=== PATIENT | female | born 1985 | race Hispanic/Latino ===

== ENCOUNTER 2016-11-12 10:03 | Emergency (ER) | payer SELFPAY ==
--- NOTE | 2016-11-12 10:36 | ERRECORD ---
[facility] EMERGENCY RECORD HPI FEVER (10:41 JJA) CHIEF COMPLAINT: Patient presents for evaluation of feeling feverish. HISTORIAN: History provided by patient, 31F presents with complaints of 2 days of fever and generalized malaise. Reports cough with yellow sputum, body aches and pains. Denies abdominal pain, headache, neck stiffness, chest pain, or shortness of breath. Denies recent travel, denies IV drug use. LOCATION: Symptoms are generalized. IMMUNIZATION STATUS: Flu vaccine not up to date. TIME COURSE: Gradual onset of symptoms, Symptoms are worsening. ASSOCIATED WITH: Associated with chills, Associated with cough, No associated headache, Associated with myalgias, No associated rash, Associated with upper respiratory infection. EXACERBATED BY: Patient's condition exacerbated by nothing. RELIEVED BY: Patient's condition relieved by over the counter medications. ROS (10:42 [facility]) CONSTITUTIONAL: Historian reports chills, reports fatigue, reports fever, reports malaise. CARDIOVASCULAR: Negative cardiovascular review of systems, Historian denies chest pain, denies palpitations. RESPIRATORY: Historian reports cough, denies shortness of breath, reports sputum. yellow. GI: Negative gastrointestinal review of systems, Historian denies abdominal pain, denies constipation, denies diarrhea, denies nausea, denies vomiting. GENITOURINARY FEMALE: Negative genitourinary review of systems, Historian denies dysuria, denies frequency. SKIN: Negative skin review of systems, Historian denies rash, denies skin changes. NEUROLOGIC: Negative neurologic review of systems, Historian denies headache. HEMO/LYMPHATIC: Normal hematologic/lymphatic system review, Historian denies abnormal blood clotting. PAST MEDICAL HISTORY (10:12 AADK) MEDICAL HISTORY: No past medical history, Flu vaccine not up to date, Tetanus immunization up to date, Date of immunization: < 5 YEARS, Pneumococcal vaccine not up to date. FEMALE SURGICAL HISTORY: Patient has no surgical history. PSYCHIATRIC HISTORY: No previous psychiatric history. SOCIAL HISTORY: Patient drinks socially, every week, Alcohol history notes: BEER, Patient denies drug use, Patient currently uses tobacco, smokes cigarettes, Occasional or some day smoker, Patient has smoked for 15 years, Patient smokes ocassionally, 2 CIGS EVERY OTHER DAY, Lives at home, with family. FAMILY HISTORY: No known family hisotry. &a-1R&a+25V*p+0X*n1354U*c202B*c15G*c2P*p-0X&a-25V&a+1R Name: Cee Ng : 1985 F31 MedRec: [id number] AcctNum: [id number] Prepared: Coby Nov 12, 2016 10:47 by Interface Page 1 of 3 pMD [facility] EMERGENCY RECORD KNOWN ALLERGIES NKDA CURRENT MEDICATIONS (10:07 AADK) None VITAL SIGNS VITAL SIGNS: BP: 156/98, Temp: 98.6 (Oral), Pain: 4 (Constant), Time: 11/12/2016 10:08. (10:08 AADK) Pulse: 98, Resp: 20 (Non-Labored), O2 sat: 98 on Room Air, Time: 11/12/2016 10:09. (10:09 AADK) PHYSICAL EXAM (10:42 [facility]) CONSTITUTIONAL: Vital signs reviewed, Patient afebrile, Pulse normal, Blood pressure normal, Respiratory rate normal, Patient appears non toxic, Patient appears pain free, Patient alert and oriented to person, place and time. NECK: Neck exam normal, Neck exam included findings of normal range of motion, Trachea midline, no meningeal signs, no cervical adenopathy, no tenderness. RESPIRATORY CHEST: Respiratory and chest exam normal, Respiratory exam included findings of no respiratory distress, Breath sounds clear. CARDIOVASCULAR: Cardiovascular assessment normal, Cardiovascular exam included findings of heart rate regular rate and rhythm, Heart sounds normal. ABDOMEN FEMALE: Abdominal exam included findings of abdomen nontender, Bowel sounds normal, no distension, no mass, no pulsatile masses, no peritoneal signs, no rigidity, no guarding, no rebound, Rovsing's sign absent. BACK: Back exam normal, Back exam included findings of normal inspection, range of motion normal, no tenderness. NEURO: Neuro exam normal, Neuro exam findings include patient oriented to person, place and time, Speech normal, Gait normal. SKIN: Skin exam normal, Skin exam included findings of skin warm, dry, and normal in color, no rash. DOCTOR NOTES (10:43 [facility]) TEXT: Patient presented with signs and symptoms consistent with viral syndrome. well appearing, non-toxic patient without evidence of concerning bacterial illness such as meningitis or pneumonia that would require further workup or investigation. Tolerating oral intake without difficulty. Appropriate for outpatient management with oral fluids and antipyretics. Needs follow up with primary physician in the next 2-3 days for re-evaluation. PATIENT STATUS: Patient has improved since arrival to emergency department. PATIENT PLAN: The patient will be discharged, The patient will follow up with primary care physician. &a-1R&a+25V*p+0X*f5000D*c202B*c15G*c2P*p-0X&a-25V&a+1R Name: Cee Ng : 1985 F31 MedRec: [id number] AcctNum: [id number] Prepared: Coby Nov 12, 2016 10:47 by Interface Page 2 of 3 pMD [facility] EMERGENCY RECORD PROBLEM LIST No recorded problems DIAGNOSIS (10:19 JJA) FINAL: PRIMARY: Viral infection. PRESCRIPTION No recorded prescriptions DISPOSITION PATIENT: Disposition Type: Discharge, Disposition: *Discharge Home. (10:19 JJAC) Patient left the department. (10:29 AADK) Freedman: AADK=SAVANNA Grande, Deborah [facility]=MD Izabella, Sergio &a-1R&a+25V*p+0X*f5022F*c202B*c15G*c2P*p-0X&a-25V&a+1R Name: Cee Ng : 1985 F31 MedRec: [id number] AcctNum: [id number] Prepared: Coby Nov 12, 2016 10:47 by Interface Page 3 of 3 pMD MTDD
--- NOTE | 2016-11-12 10:45 | PICIS ---
[facility] EMERGENCY RECORD TRIAGE (10:07 AADK) PATIENT: NAME: Cee Ng, AGE: 31, GENDER: female, : Wed 1985, TIME OF GREET: Sun Nov 12, 2016 10:03, PREFERRED LANGUAGE: Maltese, ETHNICITY: Not or , ECODE BILLING MAP: [facility], SSN: [id number], Zip Code: [address], KG WEIGHT: 90.72 (est.), PHONE: , , , PERSON ID: [id number], PAYMENT: [employer] Self Pay, PCP: DO WANG JOHN SCOTT. (10:07 AADK) COMPLAINT: Fever. (10:07 AADK) ADMISSION: URGENCY: 4 Non Urgent, ADMISSION SOURCE: Home, TRANSPORT: CAR, BED: ER -02. (10:07 AADK) PAIN: Patient complains of pain described as, aching, sharp, on a scale 0-10 patient rates pain as 4, Location ACHY WHEN SITTING, SHARP AROUND BOTTOM OF RIB CAGE WHEN SHE BENDS OVER, Pain is constant, Aggravating factors:, Pain exacerbated by movement. (10:12 AADK) TRIAGE SCREENING: Patient denies suicidal ideation, Patient denies presence of domestic violence. (10:12 AADK) LMP: Last menstrual period: 11/10/2016. (10:12 AADK) PROVIDERS: TRIAGE NURSE: Deborah Grande RN. (10:07 AADK) VITAL SIGNS: BP 156/98, Temp 98.6, (Oral), Pain 4, (Constant), Time 11/12/2016 10:08. (10:08 AADK) PREVIOUS VISIT ALLERGIES: NKDA. (10:07 AADK) NKDA. (10:12 AADK) KNOWN ALLERGIES NKDA CURRENT MEDICATIONS (10:07 AADK) None VITAL SIGNS VITAL SIGNS: BP: 156/98, Temp: 98.6 (Oral), Pain: 4 (Constant), Time: 11/12/2016 10:08. (10:08 AADK) Pulse: 98, Resp: 20 (Non-Labored), O2 sat: 98 on Room Air, Time: 11/12/2016 10:09. (10:09 AADK) NURSING ASSESSMENT: RESPIRATORY /CHEST (10:07 AADK) CONSTITUTIONAL: Patient arrives ambulatory, Gait steady, History obtained from patient, Patient appears comfortable, Patient cooperative, Patient alert, Oriented to person, place and time, Skin warm, Skin dry, Skin normal in color, Mucous membranes pink, Mucous membranes moist, Patient is well-groomed, Patient complains of FEVER, PT PRESENTS TO ER WITH C/O FEVER. ASKED HOW HIGH FEVER HAS BEEN AND SIGNIFICANT OTHER STATES "SHE'S BEEN BURNING UP." ASKED AGAIN WHAT HIGHEST TEMPERATURE HAS BEEN AND S.O. THEN SAID THEY DON'T HAVE A THERMOMETER. PT STATES SHE'S BEEN HAVING YELLOW/BROWN "BOOGERS" AND YELLOW/BROWN PRODUCTIVE COUGH. LUNGS CLEAR BILAT. RESPIRATORY/CHEST: Breath sounds clear, Respiratory assessment &a-1R&a+25V*p+0X*i1169E*c202B*c15G*c2P*p-0X&a-25V&a+1R Name: Cee Ng : 1985 F31 MedRec: [id number] AcctNum: [id number] Prepared: Coby Nov 12, 2016 10:53 by Interface Page 1 of 4 pMD [facility] EMERGENCY RECORD findings include respiratory effort easy, Respirations regular, Conversing normally, Neck and chest exam findings include trachea midline, Chest expansion equal, Chest movement symmetrical, no signs of distress, no cyanosis, Associated with cough, productive of, yellow sputum, REPORTED BY PT., Associated with fever, REPORTED BY PT BUT DID NOT ACTUALLY HAVE A THERMOMETER TO TAKE TEMP. ENT: Congestion, bilaterally. SAFETY: Side rails up, Cart/Stretcher in lowest position, Call light within reach, Hospital ID band on, Friend(s) at bedside, Patient in view of the nursing station. NURSING PROCEDURE: DISCHARGE NOTE (10:27 AADK) DISCHARGE: Patient discharged to home, ambulating without assistance, friend driving, accompanied by //partner, Summary of Care printed/ provided, Patient requested and was provided an electronic copy of Discharge Instructions, Transition record given to patient, Discharge instructions given to patient, Discharge instructions given to SIGNIFICANT OTHER, Simple or moderate discharge teaching performed, Above person(s) verbalized understanding of discharge instructions and follow-up care. BELONGINGS: Belongings remain with patient, Valuables remain with patient. HPI FEVER (10:41 [facility]) CHIEF COMPLAINT: Patient presents for evaluation of feeling feverish. HISTORIAN: History provided by patient, 31F presents with complaints of 2 days of fever and generalized malaise. Reports cough with yellow sputum, body aches and pains. Denies abdominal pain, headache, neck stiffness, chest pain, or shortness of breath. Denies recent travel, denies IV drug use. LOCATION: Symptoms are generalized. IMMUNIZATION STATUS: Flu vaccine not up to date. TIME COURSE: Gradual onset of symptoms, Symptoms are worsening. ASSOCIATED WITH: Associated with chills, Associated with cough, No associated headache, Associated with myalgias, No associated rash, Associated with upper respiratory infection. EXACERBATED BY: Patient's condition exacerbated by nothing. RELIEVED BY: Patient's condition relieved by over the counter medications. ROS (10:42 [facility]) CONSTITUTIONAL: Historian reports chills, reports fatigue, reports fever, reports malaise. CARDIOVASCULAR: Negative cardiovascular review of systems, Historian denies chest pain, denies palpitations. RESPIRATORY: Historian reports cough, denies shortness of breath, reports sputum. yellow. GI: Negative gastrointestinal review of systems, Historian denies &a-1R&a+25V*p+0X*n7078M*c202B*c15G*c2P*p-0X&a-25V&a+1R Name: Cee Ng : 1985 F31 MedRec: [id number] AcctNum: [id number] Prepared: Coby Nov 12, 2016 10:53 by Interface Page 2 of 4 pMD [facility] EMERGENCY RECORD abdominal pain, denies constipation, denies diarrhea, denies nausea, denies vomiting. GENITOURINARY FEMALE: Negative genitourinary review of systems, Historian denies dysuria, denies frequency. SKIN: Negative skin review of systems, Historian denies rash, denies skin changes. NEUROLOGIC: Negative neurologic review of systems, Historian denies headache. HEMO/LYMPHATIC: Normal hematologic/lymphatic system review, Historian denies abnormal blood clotting. PAST MEDICAL HISTORY (10:12 AADK) MEDICAL HISTORY: No past medical history, Flu vaccine not up to date, Tetanus immunization up to date, Date of immunization: < 5 YEARS, Pneumococcal vaccine not up to date. FEMALE SURGICAL HISTORY: Patient has no surgical history. PSYCHIATRIC HISTORY: No previous psychiatric history. SOCIAL HISTORY: Patient drinks socially, every week, Alcohol history notes: BEER, Patient denies drug use, Patient currently uses tobacco, smokes cigarettes, Occasional or some day smoker, Patient has smoked for 15 years, Patient smokes ocassionally, 2 CIGS EVERY OTHER DAY, Lives at home, with family. FAMILY HISTORY: No known family hisotry. PHYSICAL EXAM (10:42 [facility]) CONSTITUTIONAL: Vital signs reviewed, Patient afebrile, Pulse normal, Blood pressure normal, Respiratory rate normal, Patient appears non toxic, Patient appears pain free, Patient alert and oriented to person, place and time. NECK: Neck exam normal, Neck exam included findings of normal range of motion, Trachea midline, no meningeal signs, no cervical adenopathy, no tenderness. RESPIRATORY CHEST: Respiratory and chest exam normal, Respiratory exam included findings of no respiratory distress, Breath sounds clear. CARDIOVASCULAR: Cardiovascular assessment normal, Cardiovascular exam included findings of heart rate regular rate and rhythm, Heart sounds normal. ABDOMEN FEMALE: Abdominal exam included findings of abdomen nontender, Bowel sounds normal, no distension, no mass, no pulsatile masses, no peritoneal signs, no rigidity, no guarding, no rebound, Rovsing's sign absent. BACK: Back exam normal, Back exam included findings of normal inspection, range of motion normal, no tenderness. NEURO: Neuro exam normal, Neuro exam findings include patient oriented to person, place and time, Speech normal, Gait normal. SKIN: Skin exam normal, Skin exam included findings of skin warm, dry, and normal in color, no rash. &a-1R&a+25V*p+0X*k2891W*c202B*c15G*c2P*p-0X&a-25V&a+1R Name: Cee Ng : 1985 F31 MedRec: [id number] AcctNum: [id number] Prepared: Coby Nov 12, 2016 10:53 by Interface Page 3 of 4 pMD [facility] EMERGENCY RECORD EVENTS TRANSFER: Triage to Emergency Emergency Room -02. (Coby Nov 12, 2016 10:07 AADK) Removed from Emergency Emergency Room -02. (10:29 AADK) DOCTOR NOTES (10:43 JJA) TEXT: Patient presented with signs and symptoms consistent with viral syndrome. well appearing, non-toxic patient without evidence of concerning bacterial illness such as meningitis or pneumonia that would require further workup or investigation. Tolerating oral intake without difficulty. Appropriate for outpatient management with oral fluids and antipyretics. Needs follow up with primary physician in the next 2-3 days for re-evaluation. PATIENT STATUS: Patient has improved since arrival to emergency department. PATIENT PLAN: The patient will be discharged, The patient will follow up with primary care physician. PROBLEM LIST No recorded problems DIAGNOSIS (10:19 JJAC) FINAL: PRIMARY: Viral infection. DISPOSITION PATIENT: Disposition Type: Discharge, Disposition: *Discharge Home. (10:19 JJAC) Patient left the department. (10:29 AADK) INSTRUCTION (10:19 JJA) DISCHARGE: INFLUENZA (ADULT). FOLLOWUP: DO KATHLEEN, [place], [facility], [address] [place] [address], . SPECIAL: Lots of fluids. Tylenol and Motrin. Return to the ED if you get worse. PRESCRIPTION No recorded prescriptions IMAGING (10:28 AADK) *DISCHARGE INSTRUCTIONS RECEIPT: Image captured from scanner. *SUPPLY CHARGE SHEET: Image captured from scanner. [facility] DIGITAL SIGNATURE: MD Parekh Jason. Freedman: AADK=SAVANNA Grande, Deborah JJAC=MD Parekh Jason &a-1R&a+25V*p+0X*p2852W*c202B*c15G*c2P*p-0X&a-25V&a+1R Name: Cee Ng : 1985 F31 MedRec: [id number] AcctNum: [id number] Prepared: Coby Nov 12, 2016 10:53 by Interface Page 4 of 4 pMD MTDD
== END 2016-11-12 10:27 | disposition home or self-care (01) ==
LOC: BURERS 10:03
DX: B34.9 Viral infection, unspecified (principal)
CPT/HCPCS: 99283

== ENCOUNTER 2017-01-25 16:58 | Emergency (ER) | payer SELFPAY | END 2017-01-25 17:27 | disposition home or self-care (01) | LOC: BURERS 16:58 | DX: M72.2 Plantar fascial fibromatosis (principal) | CPT/HCPCS: 99283 ==

== ENCOUNTER 2018-11-21 13:26 | Emergency (ER) | payer SELFPAY ==
--- NOTE | 2018-11-21 21:36 | RAD ---
LEFT KNEE FOUR VIEWS: 11/21/18 No fracture, dislocation, or joint effusion was seen. 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 IMPRESSION: No acute finding. POS: HOME
== END 2018-11-21 14:32 | disposition home or self-care (01) ==
LOC: BURERS 13:26
DX: S83.92XA Sprain of unspecified site of left knee, initial encounter (principal); V43.62XA Car passenger injured in collision with other type car in traffic accident, initial encounter

== ENCOUNTER 2018-11-30 21:53 | Emergency (ER) | payer SELFPAY ==
[2018-11-30] MEDS ORDERED: Ondansetron ODT 4 MG TAB ONE (22:06)
[2018-11-30] MEDS ORDERED: Guaifenesin DM 100-10/5 ML UDCUP ONE ×2 (22:06→22:08)
[2018-11-30] MEDS ORDERED: ALPRAZolam 0.5 MG TAB ONE (22:11)
[2018-11-30] MEDS ORDERED: Lidocaine 2% PF 5 ML VIAL ONE (22:27)
== END 2018-11-30 22:48 | disposition home or self-care (01) ==
LOC: BURERS 21:53
DX: J02.9 Acute pharyngitis, unspecified (principal)
CPT/HCPCS: J2001; Q0162